=== PATIENT | male | born 1960 | race Caucasian/White ===

== ENCOUNTER → 2017-11-21 | Day surgery (SDC) | payer BC ==
[~2017-11-21] MED LIST: Lactated Ringers 1,000 ML IV SCH; Propofol 200 MG/20 ML SDV IV ONE
[2017-11-21 13:28] VITALS: BP 144/99
--- NOTE | 2017-11-24 07:18 | OR ---
DATE OF OPERATION: 11/21/2017 PREOPERATIVE DIAGNOSIS: 1. HISTORY OF POLYPS. 2. FAMILY HISTORY OF COLON CARCINOMA. POSTOPERATIVE DIAGNOSIS: 1. HISTORY OF POLYPS. 2. FAMILY HISTORY OF COLON CARCINOMA. SURGEON: Elver Concepcion MD PROCEDURE: FULL-LENGTH COLONOSCOPY. ANESTHESIA: INWEAVER due to obstructive sleep apnea. COMPLICATIONS: None. SPECIMEN: None. FINDINGS: 1. Full-length colonoscopy. 2. Marginal prep. 3. Minimal sigmoid diverticulosis. RECOMMENDATIONS: Followup colonoscopy every 5 years. INDICATIONS: The patient has a history of polyps removed in the past. He has a recent diagnosis of colon cancer in a brother. He is due for a 5-year scope. DESCRIPTION OF PROCEDURE: The patient was prepped and draped, placed in the left lateral decubitus position. A lubricated Olympus colonoscope was inserted and easily advanced to the cecum. Direct visualization of the ileocecal valve and appendiceal orifice was accomplished. Bowel prep was adequate. Upon withdrawal, the scope for the most part, made good visualization of the entire colon. There were a few areas of thicker stool, 1 in the ascending colon and 1 in the mid sigmoid, which were a little hard to get suction completely but full visualization was overall pretty good. Throughout the length of the colon, I could find no signs of any polyps, masses, ulcerations, or bleeding sites. No vascular abnormalities or signs of colitis. There were few scattered diverticula in the sigmoid colon, but very minimal without any inflammatory change. The rectal vault was unremarkable. Retroflexion of the scope in the rectum showed no anal lesions. Air was suctioned. Scope was removed without complication. JUSTUS/PHIL /[id number]
== END ==
LOC: CC.SDS 11:26
PROVIDERS: ATTEND Family Medicine
DX: Z12.11 Encounter for screening for malignant neoplasm of colon (principal); K57.30 Diverticulosis of large intestine without perforation or abscess without bleeding; Z86.010 Personal history of colon polyps; Z80.0 Family history of malignant neoplasm of digestive organs
CPT/HCPCS: 76536; J7120

== ENCOUNTER 2023-05-12 09:59 | Observation (INO) | payer BC ==
[2023-05-12] MEDS ORDERED: fentaNYL 50 MCG/ML SDV IVPUSH ONE (10:18)
[2023-05-12] MEDS ORDERED: Sodium Chloride 0.9% 1,000 ML IV ONE (10:18)
[2023-05-12] MEDS ORDERED: Iopamidol 755 Mg/ML 100 ML Bottle IVPUSH ONE (10:37)
[2023-05-12 10:56] LABS: BASOPHILS ABSOLUTE AUTO 0.02 10^3/uL (0.00-0.50); BASOPHILS PERCENT AUTO 0.2 % (0-1); EOSINOPHILS ABSOLUTE AUTO 0.04 10^3/uL (0.00-1.50); EOSINOPHILS PERCENT AUTO 0.3 % (0-6); HEMATOCRIT 39.8 % (42.0-52.0); HEMOGLOBIN 13.6 g/dL (14.0-18.0); IMMATURE GRAN ABSOLUTE AUTO 0.06 10^3/uL (0.00-0.49); IMMATURE GRAN PERCENT AUTO 0.5 % (0.0-4.9); LYMPHOCYTES ABSOLUTE AUTO 0.91 10^3/uL (0.60-5.00); LYMPHOCYTES PERCENT AUTO 6.9 % (24-44); MEAN CORPUSCULAR HEMOGLOBIN 31.3 pg (27.0-32.0); MEAN CORPUSCULAR HGB CONC 34.2 g/dL (32.0-36.0); MEAN CORPUSCULAR VOLUME 91.7 fL (83.0-97.0); MONOCYTES ABSOLUTE AUTO 1.14 10^3/uL (0.00-1.50); MONOCYTES PERCENT AUTO 8.7 % (0-10); NEUTROPHILS ABSOLUTE AUTO 10.99 x10^3/uL (1.80-8.00); NEUTROPHILS PERCENT AUTO 83.4 % (41-71); PLATELET COUNT,PLT 203 10^3/uL (150-400); RED BLOOD CELL COUNT 4.34 x10^6/uL (4.50-6.00); WHITE BLOOD CELL COUNT,WBC 13.2 10^3/uL (4.0-11.0)
[2023-05-12 11:11] LABS: ALANINE AMINOTRANSFERASE,ALT 164 U/L (12-78); ALBUMIN 3.4 g/dL (3.4-5.0); ALKALINE PHOSPHATASE 66 U/L (46-116); ASPARTATE AMNIOTRANSFERASE,AST 149 U/L (15-37); BILIRUBIN TOTAL 0.5 mg/dL (0.0-1.0); BLOOD UREA NITROGEN,BUN 23 mg/dL (7-18); CALCIUM 8.5 mg/dL (8.4-10.1); CARBON DIOXIDE,CO2 27 mmol/L (21-32); CHLORIDE,CL 101 mEq/L (98-106); CREATINE KINASE,CK 124 U/L (35-232); ESTIMATED GFR 84 mL/min (>=60); ETHANOL BLOOD MEDICAL < 3 mg/dL (0-3); GLUCOSE RANDOM 208 mg/dL (75-99); MAGNESIUM 1.9 mg/dL (1.8-2.4); POTASSIUM,K 4.5 mEq/L (3.5-5.0); PROTEIN TOTAL,TP 6.4 g/dL (6.4-8.2); SODIUM,NA 136 mEq/L (136-145)
[2023-05-12] MEDS ORDERED: Acetaminophen 500 MG Tab PO ONE (12:55)
[2023-05-12] MEDS ORDERED: Morphine 2 MG/ML SYRINGE IVPUSH ONE (12:55)
[2023-05-12 13:09] LABS: APPEARANCE,URINE CLOUDY (CLEAR); BILIRUBIN,URINE NEGATIVE (NEGATIVE); COLOR,URINE DARK YELLOW (YELLOW); GLUCOSE,URINE NEGATIVE (NEGATIVE); KETONES,URINE NEGATIVE (NEGATIVE); LEUKOCYTE ESTERASE,URINE NEGATIVE (NEGATIVE); NITRITE,URINE NEGATIVE (NEGATIVE); OCCULT BLOOD,URINE LARGE (NEGATIVE); PROTEIN,URINE >=300 mg/dL (NEGATIVE); UROBILINOGEN,URINE 0.2 EU/dL (0.2-1.0)
[2023-05-12 13:13] LABS: AMPHETAMINES,URINE NEGATIVE (NEGATIVE); BARBITURATES,URINE NEGATIVE (NEGATIVE); BENZODIAZEPINE,URINE NEGATIVE (NEGATIVE); MDMA (ECSTASY), URINE NEGATIVE (NEGATIVE); METHADONE,URINE NEGATIVE (NEGATIVE); METHAMPHETAMINES,URINE NEGATIVE (NEGATIVE); OPIATES,URINE NEGATIVE (NEGATIVE); OXYCODONE,URINE NEGATIVE (NEGATIVE); PHENCYCLIDINE,URINE NEGATIVE (NEGATIVE); TCA,URINE NEGATIVE (NEGATIVE)
[2023-05-12 13:17] LABS: EPITHELIAL CELLS,URINE NOT SEEN /HPF (NOT SEEN); RBC,URINE 40-50 /HPF (0-5); WBC,URINE 0-5 /HPF (0-5)
[2023-05-12 13:18] LABS: BACTERIA,URINE OCCASIONAL /HPF (NOT SEEN); MUCUS,URINE FEW /HPF (NOT SEEN)
[2023-05-12] MEDS ORDERED: Sodium Chloride 0.9% 500 ML IV SCH (13:45)
[2023-05-12] MEDS ORDERED: Docusate Sodium 100 MG Cap PO PRN (16:25)
[2023-05-12] MEDS ORDERED: Temazepam 15 MG Cap PO PRN (16:25)
[2023-05-12] MEDS ORDERED: Morphine 2 MG/ML SYRINGE IVPUSH PRN (16:25)
[2023-05-12] MEDS ORDERED: Polyethylene Glycol 3350 Powder 17 GM Packet PO PRN (16:25)
[2023-05-12] MEDS ORDERED: Ondansetron 4 MG/2 ML SDV IV PRN (16:25)
[2023-05-12] MEDS: Sodium Chloride 0.9% 1,000 ML IV SCH (17:45)
[2023-05-12] MEDS: oxyCODONE 5 MG Tab PO PRN (19:46)
[2023-05-12] MEDS: Acetaminophen 325 MG Tab PO PRN (19:47)
[2023-05-13] MEDS: oxyCODONE 5 MG Tab PO PRN ×2 (03:42→11:57)
[2023-05-13] MEDS: Sodium Chloride 0.9% 1,000 ML IV SCH (03:42)
[2023-05-13] MEDS: metFORMIN 500 MG Tab PO SCH ×2 (07:49→16:16)
[2023-05-13 07:55] LABS: BASOPHILS ABSOLUTE AUTO 0.03 10^3/uL (0.00-0.50); BASOPHILS PERCENT AUTO 0.3 % (0-1); EOSINOPHILS ABSOLUTE AUTO 0.06 10^3/uL (0.00-1.50); EOSINOPHILS PERCENT AUTO 0.7 % (0-6); HEMATOCRIT 38.3 % (42.0-52.0); HEMOGLOBIN 12.8 g/dL (14.0-18.0); IMMATURE GRAN ABSOLUTE AUTO 0.01 10^3/uL (0.00-0.49); IMMATURE GRAN PERCENT AUTO 0.1 % (0.0-4.9); LYMPHOCYTES ABSOLUTE AUTO 1.26 10^3/uL (0.60-5.00); LYMPHOCYTES PERCENT AUTO 14.5 % (24-44); MEAN CORPUSCULAR HGB CONC 33.4 g/dL (32.0-36.0); MEAN CORPUSCULAR VOLUME 92.7 fL (83.0-97.0); MONOCYTES ABSOLUTE AUTO 0.93 10^3/uL (0.00-1.50); MONOCYTES PERCENT AUTO 10.7 % (0-10); NEUTROPHILS ABSOLUTE AUTO 6.38 x10^3/uL (1.80-8.00); NEUTROPHILS PERCENT AUTO 73.7 % (41-71); PLATELET COUNT,PLT 196 10^3/uL (150-400); RED BLOOD CELL COUNT 4.13 x10^6/uL (4.50-6.00); WHITE BLOOD CELL COUNT,WBC 8.7 10^3/uL (4.0-11.0)
[2023-05-13] MEDS ORDERED: atorvaSTATin 20 MG Tab PO SCH (08:00)
[2023-05-13] MEDS ORDERED: CHLORTHALIDONE PO SCH (08:00)
[2023-05-13] MEDS ORDERED: Non-Formulary Medication 1 Each PO SCH (08:00)
[2023-05-13] MEDS ORDERED: Folic Acid 1 MG Tab PO SCH (08:00)
[2023-05-13] MEDS ORDERED: Potassium Chloride 10 MEQ Tab.ER PO SCH (08:00)
[2023-05-13] MEDS ORDERED: Aspirin 81 MG Tab.EC PO SCH (08:00)
[2023-05-13] MEDS ORDERED: [UNRECOGNIZED DRUG - OTHER] PO SCH (08:00)
[2023-05-13] MEDS ORDERED: Metoprolol Succinate 100 MG Tab.ER PO SCH (08:00)
[2023-05-13] MEDS ORDERED: Clopidogrel 75 MG Tab PO SCH (08:00)
[2023-05-13] MEDS ORDERED: Cholecalciferol (Vitamin D3) 5,000 UNIT Tab PO SCH (08:00)
[2023-05-13] MEDS ORDERED: ATENOLOL PO SCH (08:00)
[2023-05-13 08:14] LABS: ALBUMIN 3.2 g/dL (3.4-5.0); BILIRUBIN TOTAL 0.9 mg/dL (0.0-1.0); CALCIUM 8.6 mg/dL (8.4-10.1); CREATININE 0.8 mg/dL (0.7-1.3); EST CRCL DRUG DOSING (CG) 96.32 mL/min; POTASSIUM,K 4.2 mEq/L (3.5-5.0); PROTEIN TOTAL,TP 6.3 g/dL (6.4-8.2)
[2023-05-13 08:31] LABS: APPEARANCE,URINE CLEAR (CLEAR); BILIRUBIN,URINE NEGATIVE (NEGATIVE); COLOR,URINE YELLOW (YELLOW); GLUCOSE,URINE NEGATIVE (NEGATIVE); KETONES,URINE NEGATIVE (NEGATIVE); LEUKOCYTE ESTERASE,URINE NEGATIVE (NEGATIVE); NITRITE,URINE NEGATIVE (NEGATIVE); OCCULT BLOOD,URINE MODERATE (NEGATIVE); PH,URINE 5.5 (4.5-8.0); PROTEIN,URINE NEGATIVE (NEGATIVE); UROBILINOGEN,URINE 0.2 EU/dL (0.2-1.0)
[2023-05-13 08:51] LABS: WBC,URINE NOT SEEN /HPF (0-5)
[2023-05-13 08:52] LABS: BACTERIA,URINE NOT SEEN /HPF (NOT SEEN); EPITHELIAL CELLS,URINE NOT SEEN /HPF (NOT SEEN); MUCUS,URINE FEW /HPF (NOT SEEN)
[2023-05-13] MEDS: Acetaminophen 325 MG Tab PO PRN (11:57)
[2023-05-13] MEDS ORDERED: Enoxaparin 40 MG/0.4 ML Syringe SUBCUT SCH (12:00)
[2023-05-13 12:03] VITALS: BP 130/85; PULSE 82
== END 2023-05-13 16:30 | disposition home or self-care (01) ==
LOC: CC.ED 09:59 → CC.MS 15:31 → UNDOADMOB 15:31 → CC.MS 15:40
PROVIDERS: ADMIT Physician Assistant Medical; ATTEND Physician Assistant Medical
DX: S52.201A Unspecified fracture of shaft of right ulna, initial encounter for closed fracture (principal); S06.0X1A Concussion with loss of consciousness of 30 minutes or less, initial encounter; Z79.84 Long term (current) use of oral hypoglycemic drugs; Z79.899 Other long term (current) drug therapy; W13.8XXA Fall from, out of or through other building or structure, initial encounter; Z88.8 Allergy status to other drugs, medicaments and biological substances; Z79.82 Long term (current) use of aspirin; Z20.822 Contact with and (suspected) exposure to COVID-19
CPT/HCPCS: 36415; 70450; 70486; 71260; 72125; 73030-LT; 73030-RT; 73110-RT; 73562-RT; 73610-RT; 74177; 80053; 80305-QW; 80307; 81001; 82550; 83735; 85025; 93005; 96361; 96374; 96375; 96376; 99223; 99239; 99291-25; A9270-GY; G0378; G0390; J2270; J3010; J7030; J7040; Q9967; U0002